=== PATIENT | male | born 1945 | race Caucasian/White ===

== ENCOUNTER 2020-08-04 12:24 | Outpatient (REF) | payer SELFPAY | END 2020-08-04 12:25 | disposition home or self-care (01) | LOC: HO.HAP 12:24 | PROVIDERS: Visit Provider Internal Medicine | DX: Z13.89 Encounter for screening for other disorder (principal) ==

== ENCOUNTER 2021-09-02 11:02 | Outpatient (REF) | payer SELFPAY | END 2021-09-02 11:03 | disposition home or self-care (01) | LOC: HO.HAP 11:02 | PROVIDERS: Visit Provider Hospitalist | DX: Z46.1 Encounter for fitting and adjustment of hearing aid (principal); H90.3 Sensorineural hearing loss, bilateral; H93.13 Tinnitus, bilateral | CPT/HCPCS: 92700 ==

== ENCOUNTER 2021-11-04 13:19 | Outpatient (REF) | payer SELFPAY | END 2021-11-04 13:20 | disposition home or self-care (01) | LOC: HO.HAP 13:19 | PROVIDERS: Visit Provider Internal Medicine Addiction Medicine | DX: Z13.89 Encounter for screening for other disorder (principal) ==

== ENCOUNTER 2022-03-11 13:29 | Outpatient (REF) | payer MEDICARE, OTHER, SELFPAY | END 2022-03-11 13:30 | disposition home or self-care (01) | LOC: HO.SH 13:29 | PROVIDERS: Visit Provider Hospitalist | DX: Z01.118 Encounter for examination of ears and hearing with other abnormal findings (principal); H90.3 Sensorineural hearing loss, bilateral; H93.13 Tinnitus, bilateral | CPT/HCPCS: 92557; 92567 ==